=== PATIENT | female | born 1960 | race Caucasian/White ===

== ENCOUNTER 2018-04-13 08:51 | Emergency (ER) | payer MEDICARE ==
[2018-04-13 09:14] VITALS: BP 129/68
--- NOTE | 2018-04-13 10:04 | UC ---
Skin Complaint HPI - HPI Summary HPI Summary: she was outside about 10 days ago and gotten multiple bites. A patch started on her left inner thigh that has been itchy and now dry and pink left inner thigh. - History of Current Complaint Chief Complaint: UCSkin Time Seen by Provider: 04/13/18 09:30 Stated Complaint: LFT LEG SKIN COMPLAINT Hx Obtained From: Patient Hx Last Menstrual Period: over one year ?: No Onset/Duration: Gradual Onset, Lasting Days Skin Exposure Onset/Duration: Days Ago Onset Severity: Moderate Current Severity: Moderate Pain Intensity: 0 Location: Discrete Character: Pruritus Aggravating Factor(s): Humidity, Touch Alleviating Factor(s): Nothing Associated Signs & Symptoms: Positive: Rash. Negative: Nausea, Vomiting, Numbness, Diaphoresis, Weakness, Fever, Chills, Bruising, Tenderness, Red Streaks, Joint Swelling - Allergy/Home Medications Allergies/Adverse Reactions: Allergies Allergy/AdvReac Type Severity Reaction Status Date / Time bee venom protein (honey bee) Allergy Anaphylatic Verified 04/13/18 09:15 Shock cephalexin Allergy Hives Verified 04/13/18 09:15 clindamycin Allergy Hives Verified 04/13/18 09:15 simvastatin Allergy Rash Verified 04/13/18 09:15 Sulfa (Sulfonamide Allergy Hives Verified 04/13/18 09:15 Antibiotics) sulfamethoxazole Allergy Headache Verified 04/13/18 09:15 [From Bactrim] trimethoprim [From Bactrim] Allergy Headache Verified 04/13/18 09:15 cats and flea bites Allergy See Comment Uncoded 04/13/18 09:15 morphine tabs Allergy skin Uncoded 04/13/18 09:16 sloughing on hands salt Allergy See Comment Uncoded 04/13/18 09:15 Home Medications: Home Medications DULoxetine DR CAP* [Cymbalta CAP*] 60 mg PO DAILY 04/13/18 [History Confirmed ] Lisinopril 5 mg PO DAILY 04/13/18 [History Confirmed 04/13/18] Meloxicam 7.5 mg PO DAILY 04/13/18 [History Confirmed 04/13/18] Rosuvastatin Calcium [Crestor] 5 mg PO BEDTIME 04/13/18 [History Confirmed 04/13] Topiramate TAB(*) [Topamax 100 mg tab] 100 mg PO BEDTIME 04/13/18 [History Confirmed 04/13/18] metFORMIN* [Glucophage 500 MG TAB *] 500 mg PO QPM 04/13/18 [History Confirmed 04/13/18] Review of Systems Skin: Rash All Other Systems Reviewed And Are Negative: Yes PMH/Surg Hx/FS Hx/Imm Hx Previously Healthy: No - Mild DM. Other History Of: Anticoagulant Therapy - aspirin Negative For: HIV, Hepatitis B, Hepatitis C - Surgical History Surgical History: Yes Surgery Procedure, Year, and Place: cholecystectomy 1992; right arm and shoulder with irene 08/2017 [facility] [address]. Hauser - Family History Known Family History: Positive: Respiratory Disease - TOBACCO ABUSE Negative: Renal Disease - Social History Alcohol Use: None Substance Use Type: None Smoking Status (MU): Light Every Day Tobacco Smoker Type: Cigarettes Amount Used/How Often: 1PPD Length of Time of Smoking/Using Tobacco: 35 + yrs Have You Smoked in the Last Year: Yes Household Exposure Type: Cigarettes - Immunization History Most Recent Tetanus Shot: 2016 Physical Exam Triage Information Reviewed: Yes Appearance: Well-Appearing, No Pain Distress, Obese Vital Signs: Initial Vital Signs Temp 97.5 F 04/13/18 09:04 Pulse 94 04/13/18 09:04 Resp 18 04/13/18 09:04 BP 129/68 04/13/18 09:04 Pulse Ox 99 04/13/18 09:04 Vital Signs Reviewed: Yes Eyes: Positive: Conjunctiva Clear. Negative: Conjunctiva Inflamed ENT: Positive: Normal ENT inspection Neck: Positive: Supple, Nontender, No Lymphadenopathy Respiratory: Positive: Lungs clear, Normal breath sounds, No respiratory distress. Negative: No accessory muscle use, Respiratory distress, Decreased breath sounds, Accessory muscle use, Crackles, Rhonchi Cardiovascular: Positive: Brisk Capillary Refill Abdomen Description: Negative: Distended Musculoskeletal: Positive: Strength Intact, ROM Intact, No Edema Neurological: Positive: Alert, Muscle Tone Normal. Negative: Fatigued Skin: Positive: rashes, Other - One patch orange sized on the inner left thigh that is not hot or red. Non tender. Non indurated. No streaking and no inguinal adenopathy. Course/Dx - Diagnoses Provider Diagnoses: insect bite. Discharge - Sign-Out/Discharge Documenting (check all that apply): Patient Departure - Discharge Plan Condition: Good Disposition: HOME Prescriptions: Triamcinolone 0.5% OINT * 1 applic TOPICAL BID #1 tube Patient Education Materials: Acute Rash (ED) Referrals: Nidia Kelley PA [Primary Care Provider] - - Billing Disposition and Condition Condition: GOOD Disposition: Home
== END 2018-04-13 10:06 | disposition home or self-care (01) ==
LOC: UCCORT 08:51
DX: S70.362A Insect bite (nonvenomous), left thigh, initial encounter (principal); E11.9 Type 2 diabetes mellitus without complications; Z88.1 Allergy status to other antibiotic agents; F17.210 Nicotine dependence, cigarettes, uncomplicated; Z91.030 Bee allergy status; Z88.8 Allergy status to other drugs, medicaments and biological substances; Z88.2 Allergy status to sulfonamides; Z91.09 Other allergy status, other than to drugs and biological substances; Z88.5 Allergy status to narcotic agent; Z91.018 Allergy to other foods; Z79.82 Long term (current) use of aspirin; Z79.84 Long term (current) use of oral hypoglycemic drugs; W57.XXXA Bitten or stung by nonvenomous insect and other nonvenomous arthropods, initial encounter; Y92.9 Unspecified place or not applicable
CPT/HCPCS: 99212; G0463

== ENCOUNTER 2018-05-11 16:55 | Emergency (ER) | payer MEDICARE ==
[2018-05-11 17:21] VITALS: BP 142/64
--- NOTE | 2018-05-11 17:44 | UC ---
Complaint Female HPI - HPI Summary HPI Summary: Pt presents with two c/o. 1. Pt c/o sudden onset of dysuria and vaginal swelling and "itchiness" that began two days ago. Pt reports that she used OTC vaginal antifungal suppositories and c/o of vaginal itching resolved but c/o dysuria has remained. 2. Pt c/o or circular, erythematous, pruritic rash on right inner upper thigh. That began on 04/13/18. Pt has been using topical triomsinolone prescribed and pt reports that after topical applied it "burned". Pt states the area has been spreading and believes it is cellulitis. - History Of Current Complaint Stated Complaint: URINARY Time Seen by Provider: 05/11/18 17:03 Hx Obtained From: Patient Hx Last Menstrual Period: over one yr ?: No Onset/Duration: Sudden Onset, Lasting Days Timing: Constant Severity Initially: Mild Severity Currently: Mild Pain Intensity: 0 Character: Dull, Burning Aggravating Factor(s): Urination Associated Signs And Symptoms: Positive: Negative - Risk Factors Ectopic Risk Factor: Negative Ovarian Torsion Risk Factor: Negative - Allergies/Home Medications Allergies/Adverse Reactions: Allergies Allergy/AdvReac Type Severity Reaction Status Date / Time bee venom protein (honey bee) Allergy Anaphylatic Verified 05/11/18 17:22 Shock cephalexin Allergy Hives Verified 05/11/18 17:22 clindamycin Allergy Hives Verified 05/11/18 17:22 simvastatin Allergy Rash Verified 05/11/18 17:22 Sulfa (Sulfonamide Allergy Hives Verified 05/11/18 17:22 Antibiotics) sulfamethoxazole Allergy Headache Verified 05/11/18 17:22 [From Bactrim] trimethoprim [From Bactrim] Allergy Headache Verified 05/11/18 17:22 cats and flea bites Allergy See Comment Uncoded 05/11/18 17:22 morphine tabs Allergy skin Uncoded 05/11/18 17:22 sloughing on hands salt Allergy See Comment Uncoded 05/11/18 17:22 PMH/Surg Hx/FS Hx/Imm Hx Previously Healthy: Yes Endocrine History: Diabetes Other History Of: Anticoagulant Therapy - aspirin Negative For: HIV, Hepatitis B, Hepatitis C - Surgical History Surgical History: Yes Surgery Procedure, Year, and Place: cholecystectomy 1992; right arm and shoulder with irene 08/[address] [facility] [address]. Hauser - Family History Known Family History: Positive: Respiratory Disease - TOBACCO ABUSE Negative: Renal Disease - Social History Occupation: Employed Full-time Lives: With Family Alcohol Use: None Substance Use Type: None Smoking Status (MU): Light Every Day Tobacco Smoker Type: Cigarettes Amount Used/How Often: 1PPD Length of Time of Smoking/Using Tobacco: 35 + yrs Have You Smoked in the Last Year: Yes Household Exposure Type: Cigarettes - Immunization History Most Recent Tetanus Shot: 2017 Review of Systems Constitutional: Negative Skin: Rash Eyes: Negative ENT: Negative Respiratory: Negative Cardiovascular: Negative Gastrointestinal: Negative Genitourinary: Dysuria Motor: Negative Neurovascular: Negative Musculoskeletal: Negative Neurological: Negative Psychological: Negative Is Patient Immunocompromised?: No All Other Systems Reviewed And Are Negative: Yes Physical Exam Triage Information Reviewed: Yes Appearance: Well-Appearing Vital Signs: Initial Vital Signs Temp 98.8 F 05/11/18 17:05 Pulse 104 05/11/18 17:05 Resp 20 05/11/18 17:05 BP 142/64 05/11/18 17:05 Pulse Ox 96 05/11/18 17:05 Vital Signs Reviewed: Yes Eye Exam: Normal ENT Exam: Normal Dental Exam: Normal Neck exam: Normal Respiratory Exam: Normal Respiratory: Positive: Normal breath sounds Cardiovascular Exam: Normal Abdominal Exam: Normal Abdomen Description: Positive: Nontender Musculoskeletal Exam: Normal Neurological Exam: Normal Psychological Exam: Normal Skin: Positive: rashes - circular rash with erythematous and sliver edges. Pt denies being bit by tick. Complaint Female Dx - Course Course Of Treatment: Pt declined pelvic exam as she states that her vaginal c/o has resolved since use of OTC vaginal antifungal kevon. pt also reports that she is scheduled to have pap smear in 1 month. - Differential Dx/Diagnosis Differential Diagnosis/HQI/PQRI: Urinary Tract Infection, Other - vaginitis Provider Diagnoses: uti. tinea. vaginitis Discharge - Sign-Out/Discharge Documenting (check all that apply): Patient Departure - Discharge Plan Condition: Stable Disposition: HOME Prescriptions: Fluconazole 100 MG TAB* [Diflucan 100 MG TAB*] 100 mg PO DAILY #7 tab Nitrofurantoin Monohyd/M-Cryst [Macrobid 100 mg Capsule] 100 mg PO Q12H #14 cap Patient Education Materials: Urinary Tract Infection in Women (ED), Vaginitis ( ED), Skin Yeast Infection (ED) Referrals: Nidia Kelley PA [Primary Care Provider] - As Soon As Possible Additional Instructions: Per institutional requirements, I have reviewed the chart, however, I was not consulted specifically or made aware of this patient by the above midlevel provider. I did not personally evaluate, interact with , or disposition this patient. - Billing Disposition and Condition Condition: STABLE Disposition: Home
--- NOTE | 2018-05-13 07:39 | UC ---
- Progress Note Progress Note: please notify pt her urine culture was negative stop macrobid recheck if still symptomatic Discharge - Sign-Out/Discharge Documenting (check all that apply): Post-Discharge Follow Up - Discharge Plan Condition: Stable Disposition: HOME Prescriptions: Fluconazole 100 MG TAB* [Diflucan 100 MG TAB*] 100 mg PO DAILY #7 tab Nitrofurantoin Monohyd/M-Cryst [Macrobid 100 mg Capsule] 100 mg PO Q12H #14 cap Patient Education Materials: Urinary Tract Infection in Women (ED), Vaginitis ( ED), Skin Yeast Infection (ED) Referrals: Nidia Kelley PA [Primary Care Provider] - As Soon As Possible Additional Instructions: Per institutional requirements, I have reviewed the chart, however, I was not consulted specifically or made aware of this patient by the above midlevel provider. I did not personally evaluate, interact with , or disposition this patient. - Billing Disposition and Condition Condition: STABLE Disposition: Home
== END 2018-05-11 17:56 | disposition home or self-care (01) ==
LOC: UCCORT 16:55
DX: N39.0 Urinary tract infection, site not specified (principal); B35.9 Dermatophytosis, unspecified; N76.0 Acute vaginitis; Z88.2 Allergy status to sulfonamides; Z88.8 Allergy status to other drugs, medicaments and biological substances; E11.9 Type 2 diabetes mellitus without complications; F17.210 Nicotine dependence, cigarettes, uncomplicated; Z88.1 Allergy status to other antibiotic agents
CPT/HCPCS: 81003; 87086; 99212; G0463

== ENCOUNTER 2019-07-17 19:58 | Emergency (ER) | payer MEDICARE, MEDICAID ==
--- OUTSIDE RECORDS SUMMARY | 2019-07-17 20:05 | XMS REPORT | Continuity of Care Document ---
:1960 External Reference #:[id number] Author Name Tad Armstrong DO MPH Address [facility] [facility], [address] [place] [address] Care Team Providers Name Role Phone Jesi Bae R., LOAN ORIGINATOR - Family Care Team Information Mushroom Cultivator [phone] Problems Active Problems Provider Date Type 2 diabetes mellitus Tad Armstrong DO MPH Onset: 08/20/2014 Social History Type Date Description Comments Sex Unknown Cigarette Use Current Cigarette Smoker 1-5 Cigarettes Daily ETOH Use Denies alcohol use Tobacco Use Start: Unknown Patient is a current smoker, smokes every day Smoking Status Reviewed: 07/04/19 Patient is a current smoker, smokes every day Allergies, Adverse Reactions, Alerts Active Allergies Reaction Severity Comments Date Sulfa 07/30/2005 Keflex 08/27/2008 Clindamycin HCL 08/27/2008 Bactrim 08/20/2014 Bee Sting 08/20/2014 Simvastatin 08/20/2014 Morphine Sulfate swelling and skin peeling 09/07/2017 Medications Active Medications SIG Qnty Indications Ordering Date Provider Topiramate si by mouth 30tabs Tad Armstrong, 10/11/2014 100mg daily DO, MPH Tablets Oxycodone HCL si by mouth 120tabs Tad Armstrong, 11/27/2008 5mg every 4 to 6 DO, MPH Tablets hours as directed chronic pain patient Zanaflex 1/2-1 by mouth 60tabs ArmstrongTad, 4mg Tablets twice a day as DO, MPH directed Cymbalta si by mouth 60caps Armstrong Tad, 30mg Caps DR every 12 hours as DO, MPH Part directed Nexium 1 po qam Unknown 40mg Capsules Claritin otc Unknown 10mg Tablets Metformin HCL 1 po daily Unknown 500mg Tablets Aspirin DR 1 po daily Unknown 81mg Tablets Vitamin B-12 Unknown 1000mcg Tablets Sub Lisinopril Daily 30tabs Unknown 10mg Tablets Rosuvastatin Calcium 1 by mouth daily Unknown 10mg Tablets Immunizations Description No Information Available Vital Signs Date Vital Result Comment 07/04/2019 8:57am BP Systolic 136 mmHg BP Diastolic 84 mmHg Heart Rate 88 /min Respiratory Rate 20 /min Height 64 inches 5'4" Weight 242.00 lb Pain Level 3 Pain at this time. Pain Level With Medicine 3 on average with meds Pain Level Without Medicine 9 without meds BMI (Body Mass Index) 41.5 kg/m2 06/09/2019 8:58am BP Systolic 132 mmHg BP Diastolic 86 mmHg Heart Rate 84 /min Respiratory Rate 20 /min Height 64 inches 5'4" Weight 235.00 lb Pain Level 6 Pain at this time. Pain Level With Medicine 5 on average with meds Pain Level Without Medicine 9 without meds BMI (Body Mass Index) 40.3 kg/m2 Results Description No Information Available Procedures Date Code Description Status 06/09/2019 36193 Therapeutic, Prophylactic Or Diagnostic Injection Subq/Im Completed 05/08/2019 41364 Omt 3-4 Body Regions Completed 05/08/2019 82066 Therapeutic, Prophylactic Or Diagnostic Injection Subq/Im Completed 04/10/2019 24756 Therapeutic, Prophylactic Or Diagnostic Injection Subq/Im Completed 03/09/2019 27719 Omt 3-4 Body Regions Completed 03/09/2019 19024 Therapeutic, Prophylactic Or Diagnostic Injection Subq/Im Completed 02/07/2019 50411 Omt 3-4 Body Regions Completed 02/07/2019 12181 Therapeutic, Prophylactic Or Diagnostic Injection Subq/Im Completed 01/09/2019 29139 Therapeutic, Prophylactic Or Diagnostic Injection Subq/Im Completed 01/09/2019 22127 Test Autonomic Nervous System, Sudomotor Completed 01/09/2019 35948 Test Autonomic Nervous System, Cardiovagal Innervation Completed Medical Devices Description No Information Available Encounters Type Date Location Provider Dx Diagnosis Office Visit 06/09/2019 Main Office as Of Tad Armstrong DO, G89.21 Chronic pain due 9:00a 11/04/13 MPH to trauma M54.2 Cervicalgia M54.6 Pain in thoracic spine M54.5 Low back pain 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 R53.83 Other fatigue Office Visit 05/08/2019 9:15a Main Office as Tad Armstrong G89.21 Chronic pain due Of 11/04/13 DO, MPH to trauma M54.2 Cervicalgia M99.01 Segmental and somatic dysfunction of cervical region M54.6 Pain in thoracic spine M99.02 Segmental and somatic dysfunction of thoracic region M54.5 Low back pain M99.03 Segmental and somatic dysfunction of lumbar region 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 R53.83 Other fatigue Office Visit 04/10/2019 9:30a Main Office as Tad Armstrong G89.21 Chronic pain due Of 11/04/13 DO, MPH to trauma M54.2 Cervicalgia M54.6 Pain in thoracic spine M54.5 Low back pain 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 R53.83 Other fatigue Office Visit 03/09/2019 9:30a Main Office as Tad Armstrong G89.21 Chronic pain due Of 11/04/13 DO, MPH to trauma M54.2 Cervicalgia M99.01 Segmental and somatic dysfunction of cervical region M54.6 Pain in thoracic spine M99.02 Segmental and somatic dysfunction of thoracic region M54.5 Low back pain M99.03 Segmental and somatic dysfunction of lumbar region R53.83 Other fatigue Z79.891 halfway (current) use of opiate analgesic Office Visit 02/07/2019 9:15a Main Office as Tad Armstrong G89.21 Chronic pain due Of 2 DO, MPH to trauma M54.5 Low back pain M99.03 Segmental and somatic dysfunction of lumbar region M54.6 Pain in thoracic spine M99.02 Segmental and somatic dysfunction of thoracic region M54.2 Cervicalgia M99.01 Segmental and somatic dysfunction of cervical region G90.3 Multi-system degeneration of the autonomic nervous system Z79.891 halfway (current) use of opiate analgesic R53.83 Other fatigue Office Visit 01/09/2019 9:00a Main Office as ArmstrongVioleta easleyph, G89.21 Chronic pain due Of 11/04/13 DO, MPH to trauma M54.5 Low back pain M54.6 Pain in thoracic spine M54.2 Cervicalgia R53.83 Other fatigue 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 G90.3 Multi-system degeneration of the autonomic nervous system Assessments Date Code Description Provider 07/04/2019 G89.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 pain due to trauma Armstrong, Tad, DO, MPH 07/04/2019 M54.2 Cervicalgia Armstrong, Tad, DO, MPH 07/04/2019 M54.5 Low back pain Armstrong, Tad, DO, MPH 07/04/2019 M54.6 Pain in thoracic spine Armstrong, Tad, DO, MPH 07/04/2019 R53.83 Other fatigue Armstrong, Tad, DO, MPH 07/04/2019 Z79.891 halfway (current) use of opiate analgesic Armstrong, Tad , DO, MPH 06/09/2019 G89.21 Chronic pain due to trauma Armstrong, Tad, DO, MPH 06/09/2019 M54.2 Cervicalgia Armstrong, Tad, DO, MPH 06/09/2019 M54.6 Pain in thoracic spine Armstrong, Tad, DO, MPH 06/09/2019 M54.5 Low back pain Armstrong, Tad, DO, MPH 06/09/2019 Z79.891 halfway (current) use of opiate analgesic Armstrong, Tad , DO, MPH 06/09/2019 R53.83 Other fatigue Armstrong, Tad, DO, MPH 05/08/2019 G89.21 Chronic pain due to trauma Armstrong, Tad, DO, MPH 05/08/2019 M54.2 Cervicalgia Armstrong, Tad, DO, MPH 05/08/2019 M99.01 Segmental and somatic dysfunction of Armstrong, Tad, DO, MPH cervical region 05/08/2019 M54.6 Pain in thoracic spine Armstrong, Tad, DO, MPH 05/08/2019 M99.02 Segmental and somatic dysfunction of Armstrong, Tad, DO, MPH thoracic region 05/08/2019 M54.5 Low back pain Armstrong, Tad, DO, MPH 05/08/2019 M99.03 Segmental and somatic dysfunction of lumbar Armstrong, Tad, DO, MPH region 05/08/2019 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 Armstrong, Tad , DO, MPH 05/08/2019 R53.83 Other fatigue Armstrong, Tad, DO, MPH 04/10/2019 G89.21 Chronic pain due to trauma Armstrong, Tad, DO, MPH 04/10/2019 M54.2 Cervicalgia Armstrong, Tad, DO, MPH 04/10/2019 M54.6 Pain in thoracic spine Armstrong, Tad, DO, MPH 04/10/2019 M54.5 Low back pain Armstrong, Tad, DO, MPH 04/10/2019 Z79.891 halfway (current) use of opiate analgesic Armstrong, Tad , DO, MPH 04/10/2019 R53.83 Other fatigue Armstrong, Tad, DO, MPH 03/09/2019 G89.21 Chronic pain due to trauma Armstrong, Tad, DO, MPH 03/09/2019 M54.2 Cervicalgia Armstrong, Tad, DO, MPH 03/09/2019 M99.01 Segmental and somatic dysfunction of Armstrong, Tad, DO, MPH cervical region 03/09/2019 M54.6 Pain in thoracic spine Armstrong, Tad, DO, MPH 03/09/2019 M99.02 Segmental and somatic dysfunction of Armstrong, Tad, DO, MPH thoracic region 03/09/2019 M54.5 Low back pain Armstrong, Tad, DO, MPH 03/09/2019 M99.03 Segmental and somatic dysfunction of lumbar Armstrong, Tad, DO, MPH region 03/09/2019 R53.83 Other fatigue Armstrong, Tad, DO, MPH 03/09/2019 Z79.891 halfway (current) use of opiate analgesic Armstrong, Tad , DO, MPH 02/07/2019 G89.21 Chronic pain due to trauma Armstrong, Tad, DO, MPH 02/07/2019 M54.5 Low back pain Armstrong, Tad, DO, MPH 02/07/2019 M99.03 Segmental and somatic dysfunction of lumbar ArmstrongTad easley DO, MPH region 02/07/2019 M54.6 Pain in thoracic spine ArmstrongTad easley DO, MPH 02/07/2019 M99.02 Segmental and somatic dysfunction of ArmstrongTad easley, DO, MPH thoracic region 02/07/2019 M54.2 Cervicalgia Tad Armstrong DO, MPH 02/07/2019 M99.01 Segmental and somatic dysfunction of Tad Armstrong, DO, MPH cervical region 02/07/2019 G90.3 Multi-system degeneration of the autonomic Tad Armstrong, DO , MPH nervous system 02/07/2019 Z79.891 halfway (current) use of opiate analgesic Tad Armstrong DO, MPH 02/07/2019 R53.83 Other fatigue Tad Armstrong DO, MPH 01/09/2019 G89.21 Chronic pain due to trauma Tad Armstrong DO, MPH 01/09/2019 M54.5 Low back pain Tad Armstrong DO, MPH 01/09/2019 M54.6 Pain in thoracic spine Tad Armstrong DO, MPH 01/09/2019 M54.2 Cervicalgia Tad Armstrong DO, MPH 01/09/2019 R53.83 Other fatigue ArmstrongTad easley DO, MPH 01/09/2019 Z79.891 halfway (current) use of opiate analgesic Tad Armstrong DO, MPH 01/09/2019 G90.3 Multi-system degeneration of the autonomic Tad Armstrong DO , MPH nervous system Plan of Treatment Future Appointment(s):08/08/2019 9:00 am - Tad Armstrong DO MPH at Main Office as Of 11/04/1409 - Tad Armstrong DO, MPHG89.21 Chronic pain due to traumaComments:Chronic. Symptoms and complaints discussed and reviewed today. No significant changes in physical findings. Continue current medical pain management.M54.2 CervicalgiaComments:Chronic. Symptoms and complaints discussed and reviewed today. No significant changes in physical findings. Continue current medical pain management.M54.5 Low back painComments:Chronic. Symptoms and complaints discussed and reviewed today.No changes in physical findings. Patient is stable and comfortable when current medical therapy is rendered.M54.6 Pain in thoracic spineComments:Chronic.Symptoms and complaints discussed and reviewed today. No significant changes in physical findings. Continue current medical pain management.R53.83 Other fatigueComments:Symptoms and complaints discussed and reviewed today. No significant changes in physical findings. Continue current medical pain management. B12 injection administered after patient evaluated. 1ml IM for fatigue. (See Consent for injection-B12 document for lot number and expiration date.)Z79.891 long term care administrator ( current) use of opiate analgesicNew Labs:Urine Drug Screen, Ordered: Comments:Urine drug screen sample taken today to monitor opiate use and to monitor use of illicit substances.Will discuss results at next appointment.The following tests were ordered:6 AM, AMPH, KATELYN, DUKE, BUP, CARIS, COCM, COT, ETG , FENT, MCSHSG, OPI, OXY, PCP, TAPEN, XTSY, ZOLP. A urine drug test (UDT ) was ordered for this patient and collected on site today. Creatinine has been ordered as well for specimen validity, not for kidney function. Preliminary UDT results are not final and should not be used to determine patient care or plan of treatment. Initially a qualitative immunoassay screen will be done. Any inconsistent or positive findings will be further tested with a more comprehensive quantitative confirmation LCMS study. It is part of the treatment process of prescribing controlled substances and is considered standard of care.AllComments:Continue current medical pain management; injection therapy, osteopathic manipulation, PT / modalities, and consults as needed to manage chronic pain.Non - opioid pain management discussed and optionsdiscussed.Side effects discussed; anticipatory guidance given. Patient clearly understand and agree with all medical treatments and suggestions. 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 Importance of regular nutrition throughout the day discussed.Activity as toleratedContinue with PCP Functional Status Description No Information Available Mental Status Description No Information Available Referrals Description No Information Available
--- OUTSIDE RECORDS SUMMARY | 2019-07-17 20:06 | XMS REPORT | Continuity of Care Document ---
:1960 External Reference #:[id number] Author Name Tad Armstrong DO MPH Address [facility], [address] [place] [address] Care Team Providers Name Role Phone Jesi Bae R., COP BRE[employer]ER - Family Care Team Information Utilization Review [phone] [phone] Problems Active Problems Provider Date Type 2 diabetes mellitus Tad Armstrong DO MPH Onset: 08/20/2014 Social History Type Date Description Comments Sex Unknown Cigarette Use Current Cigarette Smoker 1-5 Cigarettes Daily ETOH Use Denies alcohol use Tobacco Use Start: Unknown Patient is a current smoker, smokes every day Smoking Status Reviewed: 05/08/19 Patient is a current smoker, smokes every [...] pain patient Zanaflex 1/2-1 by mouth 60tabs ArmstrongTad sutherland, 4mg Tablets twice a day as DO, [...] Available Vital Signs Date Vital Result Comment 06/09/2019 8:58am BP Systolic 132 mmHg BP Diastolic 86 mmHg Heart Rate 84 /min Respiratory Rate 20 /min Height 64 inches 5'4" Weight 235.00 lb Pain Level 6 Pain at this time. Pain Level With Medicine 5 on average with meds Pain Level Without Medicine 9 without meds BMI (Body Mass Index) 40.3 kg/m2 05/08/2019 9:15am BP Systolic 122 mmHg BP Diastolic 76 mmHg Heart Rate 74 /min Respiratory Rate 20 /min Height 64 inches 5'4" Weight 236.00 lb Pain Level 5 Pain at this time. Pain Level With Medicine 4 on average with meds Pain Level Without Medicine 9 without meds BMI (Body Mass Index) 40.5 kg/m2 Results Description No Information Available Procedures Date Code Description Status 05/08/2019 20833 Omt 3-4 Body Regions Completed 05/08/2019 07581 Therapeutic, Prophylactic Or Diagnostic Injection Subq/Im Completed 04/10/2019 01150 Therapeutic, Prophylactic Or Diagnostic Injection Subq/Im Completed 03/09/2019 04340 Omt 3-4 Body Regions Completed 03/09/2019 80323 Therapeutic, Prophylactic Or Diagnostic Injection Subq/Im Completed 02/07/2019 29492 Omt 3-4 Body Regions Completed 02/07/2019 79607 Therapeutic, Prophylactic Or Diagnostic Injection Subq/Im Completed 01/09/2019 52974 Therapeutic, Prophylactic Or Diagnostic Injection Subq/Im Completed 01/09/2019 67148 Test Autonomic Nervous System, Sudomotor Completed 01/09/2019 08098 Test Autonomic Nervous System, Cardiovagal Innervation Completed Medical Devices Description No Information Available Encounters Type Date Location Provider Dx Diagnosis Office Visit 05/08/2019 Main Office as Of Tad Armstrong DO G89.21 Chronic pain due 9:15a 11/04/13 MPH to trauma M54.2 Cervicalgia M99.01 Segmental and somatic dysfunction of cervical region M54.6 Pain in thoracic spine M99.02 Segmental and somatic dysfunction of thoracic region M54.5 Low back pain M99.03 Segmental and somatic dysfunction of lumbar region Z79.891 assisted (current) use of opiate analgesic R53.83 Other fatigue Office Visit 04/10/2019 9:30a Main Office as Tad Armstrong G89.21 Chronic pain due Of 11/04/13 DO, MPH to trauma M54.2 Cervicalgia M54.6 Pain in thoracic spine M54.5 Low back pain Z79.891 meterman (current) use of opiate analgesic R53.83 Other [...] of lumbar region R53.83 Other fatigue Z79.891 assisted (current) use of opiate analgesic Office Visit [...] degeneration of the autonomic nervous system Z79.891 assisted (current) use of opiate analgesic R53.83 Other fatigue Office Visit 01/09/2019 9:00a Main Office as Tad Armstrong G89.21 Chronic pain due Of 2 DO, MPH to trauma M54.5 Low back pain M54.6 Pain in thoracic spine M54.2 Cervicalgia R53.83 Other fatigue Z79.891 meterman (current) use of opiate analgesic 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-system degeneration of the autonomic nervous system Assessments Date Code Description Provider 06/09/2019 G89.21 Chronic pain due to trauma Armstrong, Tad, DO, MPH 06/09/2019 M54.2 Cervicalgia Armstrong, Tad, DO, MPH 06/09/2019 M54.6 Pain in thoracic spine Armstrong, Tad, DO, MPH 06/09/2019 M54.5 Low back pain Armstrong, Tad, DO, MPH 06/09/2019 Z79.891 assisted (current) use of opiate analgesic Armstrong, Tad [...] Armstrong, Tad, DO, MPH region 05/08/2019 Z79.891 meterman (current) use of opiate analgesic Armstrong, Tad , DO, MPH 05/08/2019 R53.83 Other fatigue Armstrong, Tad, DO, MPH 04/10/2019 G89.21 Chronic pain due to trauma Armstrong, Tad, DO, MPH 04/10/2019 M54.2 Cervicalgia Armstrong, Tad, DO, MPH 04/10/2019 M54.6 Pain in thoracic spine Armstrong, Tad, DO, MPH 04/10/2019 M54.5 Low back pain Armstrong, Tad, DO, MPH 04/10/2019 Z79.891 assisted (current) use of opiate analgesic Armstrong, Tad [...] fatigue Armstrong, Tad, DO, MPH 03/09/2019 Z79.891 assisted (current) use of opiate analgesic Armstrong, Tad , DO, MPH 02/07/2019 G89.21 Chronic pain due to trauma Armstrong, Tad, DO, MPH 02/07/2019 M54.5 Low back pain Armstrong, Tad, DO, MPH 02/07/2019 M99.03 Segmental and somatic dysfunction of lumbar Armstrong, Tad, DO, MPH region 02/07/2019 M54.6 Pain in thoracic spine Armstrong, Tad, DO, MPH 02/07/2019 M99.02 Segmental and somatic dysfunction of Armstrong, Tad, DO, MPH thoracic region 02/07/2019 M54.2 Cervicalgia Armstrong, Tad, DO, MPH 02/07/2019 M99.01 Segmental and somatic dysfunction of Armstrong, Tad, DO, MPH cervical region 02/07/2019 G90.3 Multi-system degeneration of the autonomic Armstrong, Tad, DO , MPH nervous system 02/07/2019 Z79.891 meterman (current) use of opiate analgesic Armstrong, Tad , DO, MPH 02/07/2019 R53.83 Other fatigue Armstrong, Tad, DO, MPH 01/09/2019 G89.21 Chronic pain due to trauma Armstrong, Tad, DO, MPH 01/09/2019 M54.5 Low back pain Armstrong, Tad, DO, MPH 01/09/2019 M54.6 Pain in thoracic spine Tad Armstrong DO MPH 01/09/2019 M54.2 Cervicalgia Tad Armstrong DO MPH 01/09/2019 R53.83 Other fatigue Tad Armstrong DO MPH 01/09/2019 Z79.891 assisted (current) use of opiate analgesic Tad Armstrong DO MPH 01/09/2019 G90.3 Multi-system degeneration of the autonomic Tad Armstrong DO MPH nervous system Plan of Treatment Future Appointment(s):07/10/2019 9:30 am - Tad Armstrong DO MPH at Main Office as Of 11/04/1408 - Tad Armstrong DO, MPHG89.21 Chronic pain due to traumaComments:Chronic. Symptoms and complaints discussed and reviewed today. No significant changes in physical findings. Continue current medical pain management.M54.2 CervicalgiaComments:Chronic. Symptoms and complaints discussed and reviewed today. No significant changes in physical findings. Continue current medical pain management.M54.6 Pain in thoracic spineComments: Chronic.Symptoms and complaints discussed and reviewed today. No significant changes in physical findings. Continue current medical pain management.M54.5 Low back painComments:Chronic. Symptoms and complaints discussed and reviewed today.No changes in physical findings. Patient is stable and comfortable when current medical therapy is rendered.Z79.891 meterman (current) use of opiate analgesicNew Labs:Urine Drug Screen, Ordered: 06/09/19Comments:Urine drug screen sample taken today to monitor opiate use and to monitor use of illicit substances.Will discuss results at next appointment.The following tests were ordered:6 AM, AMPH, KATELYN, DUKE, BUP, CARIS, COCM, COT, ETG, FENT, MCSHSG, OPI, OXY, PCP, TAPEN, XTSY, ZOLP. A urine drug test (UDT) was ordered for this patient and collected [...] controlled substances and is considered standard of care.R53.83 Other fatigueComments:Symptoms and complaints discussed and reviewed today. No significant changes in physical findings. Continue current medical pain management. B12 injection administered after patient evaluated. 1ml IM for fatigue. (See Consent for injection-B12 document for lot number and expiration date.)AllComments:Continue current medical pain management; injection therapy, osteopathic [...] while maintaining satisfactory side effect profile andminimizing correction end-organ damage. Importance of regular nutrition throughout the day discussed.Activity as toleratedContinue with PCP Functional Status Description No Information Available Mental Status Description No Information Available Referrals Description No Information Available
[2019-07-17 20:28] VITALS: BP 124/59
--- NOTE | 2019-07-17 21:11 | UC ---
Lower Extremity/Ankle HPI - HPI Summary HPI Summary: 59 yo female twisted her left ankle when she tried to avoid stepping on her kitten. remote hx of injury pain with attemps to wt bear occurred this AM - History of Current Complaint Chief Complaint: UCLowerExtremity Stated Complaint: LEFT FOOT INJURY Time Seen by Provider: 07/17/19 20:25 Hx Obtained From: Patient Hx Last Menstrual Period: over one yr Onset/Duration: Sudden Onset, Lasting Hours Severity Initially: Moderate Severity Currently: Moderate Pain Intensity: 6 Pain Scale Used: 0-10 Numeric Aggravating Factor(s): Standing, Ambulation Alleviating Factor(s): Rest, Elevation Able to Bear Weight: No Feet (Multiple View): 1 - tender/swollen - Allergies/Home Medications Allergies/Adverse Reactions: Allergies Allergy/AdvReac Type Severity Reaction Status Date / Time bee venom protein (honey bee) Allergy Anaphylatic Verified 07/17/19 20:30 Shock cephalexin Allergy Hives Verified 07/17/19 20:30 clindamycin Allergy Hives Verified 07/17/19 20:30 simvastatin Allergy Rash Verified 07/17/19 20:30 Sulfa (Sulfonamide Allergy Hives Verified 07/17/19 20:30 Antibiotics) sulfamethoxazole Allergy Headache Verified 07/17/19 20:30 [From Bactrim] trimethoprim [From Bactrim] Allergy Headache Verified 07/17/19 20:30 cats and flea bites Allergy See Comment Uncoded 07/17/19 20:30 morphine tabs Allergy skin Uncoded 07/17/19 20:30 sloughing on hands salt Allergy See Comment Uncoded 07/17/19 20:30 PMH/Surg Hx/FS Hx/Imm Hx Previously Healthy: Yes Endocrine History: Diabetes, Dyslipidemia Cardiovascular History: Hypertension Other History Of: Anticoagulant Therapy - aspirin Negative For: HIV, Hepatitis B, Hepatitis C - Surgical History Surgical History: Yes Surgery Procedure, Year, and Place: cholecystectomy 1992; right arm and shoulder with irene 08/2017 [facility] [address]. Hauser - Family History Known Family History: Positive: Respiratory Disease - TOBACCO ABUSE, Non- Contributory Negative: Renal Disease - Social History Alcohol Use: None Substance Use Type: None Smoking Status (MU): Light Every Day Tobacco Smoker Type: Cigarettes Amount Used/How Often: 1PPD Length of Time of Smoking/Using Tobacco: 35 + yrs Have You Smoked in the Last Year: Yes Household Exposure Type: Cigarettes - Immunization History Most Recent Tetanus Shot: 2017 Review of Systems All Other Systems Reviewed And Are Negative: Yes Constitutional: Positive: Negative Skin: Positive: Negative Eyes: Positive: Negative ENT: Positive: Negative Respiratory: Positive: Negative Cardiovascular: Positive: Negative Gastrointestinal: Positive: Negative Genitourinary: Positive: Negative Motor: Positive: Negative Neurovascular: Positive: Negative Musculoskeletal: Positive: Arthralgia - left ankle Neurological: Positive: Negative Psychological: Positive: Negative Physical Exam Triage Information Reviewed: Yes Appearance: Well-Appearing, No Pain Distress, Well-Nourished Vital Signs: Initial Vital Signs Temp 98.0 F 07/17/19 20:23 Pulse 88 07/17/19 20:23 Resp 16 07/17/19 20:23 BP 124/59 07/17/19 20:23 Pulse Ox 97 07/17/19 20:23 Vital Signs Reviewed: Yes Eyes: Positive: Conjunctiva Clear ENT: Positive: Hearing grossly normal. Negative: Nasal congestion, Nasal drainage, Trismus, Muffled voice, Hoarse voice Dental: Negative: Abscess @ Neck: Positive: Supple, Nontender, No Lymphadenopathy Respiratory: Positive: Lungs clear, Normal breath sounds, No respiratory distress, No accessory muscle use Cardiovascular: Positive: RRR, No Murmur Musculoskeletal: Positive: Other: - see image Neurological: Positive: Alert Psychological Exam: Normal Skin Exam: Normal Diagnostics - Radiology No standard instances Radiology Interpretation Completed By: ED Physician Summary of Radiographic Findings: ? m.m. fx through osteophyte Lower Extremity Course/Dx - Differential Dx/Diagnosis Provider Diagnosis: Sprain of left medial ankle joint Discharge ED - Sign-Out/Discharge Documenting (check all that apply): Patient Departure All imaging exams completed and their final reports reviewed: No - Discharge Plan Condition: Stable Disposition: HOME Patient Education Materials: Ankle Sprain (ED) Referrals: Willian Haley MD [Medical Doctor] - As Soon As Possible Additional Instructions: offical xr reading pending you may have a fracture medial ankle through a bone spur CAM BOOT Crutches see orthopedist this week rest ice elevation - Billing Disposition and Condition Condition: STABLE Disposition: Home
--- NOTE | 2019-07-18 08:26 | UC ---
- Progress Note Progress Note: xray report : IMPRESSION: 1. Soft tissue swelling. 2. Corticated ossific fragments about the medial malleolus may be related to old trauma. Correlate with point tenderness. Course/Dx - Diagnoses Provider Diagnoses: Sprain of left medial ankle joint Discharge ED - Sign-Out/Discharge Documenting (check all that apply): Patient Departure All imaging exams completed and their final reports reviewed: Yes - Discharge Plan Condition: Stable Disposition: HOME Patient Education Materials: Ankle Sprain (ED) Referrals: Willian Haley MD [Medical Doctor] - As Soon As Possible Additional Instructions: offical xr reading pending you may have a fracture medial ankle through a bone spur CAM BOOT Crutches see orthopedist this week rest ice elevation - Billing Disposition and Condition Condition: STABLE Disposition: Home
== END 2019-07-17 21:40 | disposition home or self-care (01) ==
LOC: UCCORT 19:58
DX: S93.492A Sprain of other ligament of left ankle, initial encounter (principal); E11.9 Type 2 diabetes mellitus without complications; I10 Essential (primary) hypertension; F17.210 Nicotine dependence, cigarettes, uncomplicated; Z91.030 Bee allergy status; Z88.1 Allergy status to other antibiotic agents; Z91.018 Allergy to other foods; Z88.5 Allergy status to narcotic agent; Z88.2 Allergy status to sulfonamides; Z88.8 Allergy status to other drugs, medicaments and biological substances; X50.1XXA Overexertion from prolonged static or awkward postures, initial encounter; Y92.9 Unspecified place or not applicable
CPT/HCPCS: 99213; G0463